=== PATIENT | female | born 1985 ===

== ENCOUNTER 2021-06-21 10:23 | Outpatient (CLI) | payer OTHER | END 2021-06-21 11:45 | disposition home or self-care (01) | LOC: PRENATAL 10:23 | PROVIDERS: ATTEND Obstetrics & Gynecology Maternal & Fetal Medicine | DX: O34.11 Maternal care for benign tumor of corpus uteri, first trimester (principal); O36.80X1 Pregnancy with inconclusive fetal viability, fetus 1; Z36.89 Encounter for other specified antenatal screening; Z3A.14 14 weeks gestation of pregnancy ==

== ENCOUNTER 2021-08-03 09:20 | Outpatient (CLI) | payer OTHER | END 2021-08-03 10:40 | disposition home or self-care (01) | LOC: PRENATAL 09:20 | PROVIDERS: ATTEND Obstetrics & Gynecology Maternal & Fetal Medicine | DX: O35.0XX1 Maternal care for (suspected) central nervous system malformation in fetus, fetus 1 (principal); O35.3XX1 Maternal care for (suspected) damage to fetus from viral disease in mother, fetus 1; O98.512 Other viral diseases complicating pregnancy, second trimester; O34.12 Maternal care for benign tumor of corpus uteri, second trimester; Z36.89 Encounter for other specified antenatal screening; Z3A.20 20 weeks gestation of pregnancy ==

== ENCOUNTER 2021-08-25 11:38 | Outpatient (CLI) | payer OTHER | END 2021-08-25 15:06 | disposition home or self-care (01) | LOC: OBS/DEL 11:38 | PROVIDERS: ATTEND Obstetrics & Gynecology | DX: O26.842 Uterine size-date discrepancy, second trimester (principal); O26.852 Spotting complicating pregnancy, second trimester; Z3A.23 23 weeks gestation of pregnancy ==

== ENCOUNTER 2021-11-03 14:29 | Outpatient (CLI) | payer OTHER | END 2021-11-03 16:11 | disposition home or self-care (01) | LOC: PRENATAL 14:29 | PROVIDERS: ATTEND Obstetrics & Gynecology Maternal & Fetal Medicine | DX: O26.843 Uterine size-date discrepancy, third trimester (principal); O36.8131 Decreased fetal movements, third trimester, fetus 1; O35.0XX1 Maternal care for (suspected) central nervous system malformation in fetus, fetus 1; O24.410 Gestational diabetes mellitus in pregnancy, diet controlled; Z36.89 Encounter for other specified antenatal screening; Z3A.33 33 weeks gestation of pregnancy ==

== ENCOUNTER 2021-11-16 13:36 | Outpatient (CLI) | payer OTHER | END 2021-11-17 08:29 | disposition home or self-care (01) | LOC: OBS/DEL 13:36 | PROVIDERS: ATTEND Obstetrics & Gynecology | DX: O26.893 Other specified pregnancy related conditions, third trimester (principal); R10.2 Pelvic and perineal pain; Z3A.35 35 weeks gestation of pregnancy; Z11.52 Encounter for screening for COVID-19 ==

== ENCOUNTER 2021-11-29 14:00 | Outpatient (CLI) | payer OTHER | END 2021-11-29 15:05 | disposition home or self-care (01) | LOC: PRENATAL 14:00 | PROVIDERS: ATTEND Obstetrics & Gynecology Maternal & Fetal Medicine | DX: O26.849 Uterine size-date discrepancy, unspecified trimester (principal); O24.419 Gestational diabetes mellitus in pregnancy, unspecified control ==

== ENCOUNTER → 2023-11-26 14:47 | Outpatient (CLI) | payer OTHER | END | disposition home or self-care (01) | LOC: PRENATAL 14:47 | PROVIDERS: ATTEND Obstetrics & Gynecology Maternal & Fetal Medicine | DX: O36.80X0 Pregnancy with inconclusive fetal viability, not applicable or unspecified (principal); Z36.82 Encounter for antenatal screening for nuchal translucency; O09.529 Supervision of elderly multigravida, unspecified trimester; O34.219 Maternal care for unspecified type scar from previous cesarean delivery; Z3A.11 11 weeks gestation of pregnancy ==

== ENCOUNTER → 2024-01-27 11:10 | Outpatient (CLI) | payer OTHER | END | disposition home or self-care (01) | LOC: PRENATAL 11:10 | PROVIDERS: ATTEND Obstetrics & Gynecology Maternal & Fetal Medicine | DX: O35.9XX0 Maternal care for (suspected) fetal abnormality and damage, unspecified, not applicable or unspecified (principal); O09.529 Supervision of elderly multigravida, unspecified trimester; O35.3XX0 Maternal care for (suspected) damage to fetus from viral disease in mother, not applicable or unspecified; O34.219 Maternal care for unspecified type scar from previous cesarean delivery; O44.00 Complete placenta previa NOS or without hemorrhage, unspecified trimester; Z3A.20 20 weeks gestation of pregnancy ==

== ENCOUNTER 2024-04-21 11:25 | Outpatient (CLI) | payer OTHER | END 2024-04-21 11:26 | disposition home or self-care (01) | LOC: PRENATAL 11:25 | PROVIDERS: ATTEND Obstetrics & Gynecology Maternal & Fetal Medicine | DX: O36.5930 Maternal care for other known or suspected poor fetal growth, third trimester, not applicable or unspecified (principal); O36.8130 Decreased fetal movements, third trimester, not applicable or unspecified; O09.523 Supervision of elderly multigravida, third trimester; O34.219 Maternal care for unspecified type scar from previous cesarean delivery; Z3A.32 32 weeks gestation of pregnancy ==

== ENCOUNTER 2024-05-26 21:53 | Outpatient (CLI) | payer OTHER ==
[2024-05-26] MEDS ORDERED: RINGERS SOLUTION,LACTATED 1,000 ML IV SCH (22:30)
[2024-05-26 23:26] LABS: PH,URINE 6.5 (5.0-8.0); URINE APPEARANCE Cloudy; URINE BILIRRUBIN Negative (NEGATIVE); URINE BLOOD Negative; URINE COLOR Yellow; URINE GLUCOSE Negative (NEGATIVE); URINE LEUKOCYTE Trace; URINE NITRATE Negative; URINE PROTEIN Negative (NEGATIVE)
[2024-05-26 23:46] LABS: URINE BACTERIA 4931.4 uL (0.0-1933); URINE WBC 53.6 uL (0.0-23.2)
[2024-05-26] MEDS ORDERED: OXYTOCIN 20 UNITS/1000ML RL PIGGYBAG IV ONE (23:58)
[2024-05-27 00:47] LABS: INR 0.98; PARTIAL THROMBOPLASTIN TIME 28.5 SECONDS (22.0-34.0); PROTHROMBIN TIME 10.3 SECONDS (9.0-11.5)
[2024-05-27 01:01] LABS: URINE EPITHELIAL CELLS > 201.7 uL (0.0-38.8); URINE MUCUS MODERATE; URINE RBC 0.3 uL (0.0-20.8)
[2024-05-27 01:05] LABS: HEMATOCRIT 37.5 % (36.0-45.00); HEMOGLOBIN 13.7 g/dL (12.0-15.00); MEAN CELL VOLUME 95.7 fL (80.00-100.00); MEAN CORPUSCULAR HEMOGLOBIN 34.9 pg (27.00-32.0); MEAN CORPUSCULAR HGB CONC 36.5 g/dl (32.0-36.0); PLATELET COUNT 175 K/uL (150-450); RED BLOOD COUNT 3.92 M/uL (4.00-6.00); RED CELL DISTRIBUTION WIDTH 13.1 % (11.5-14.5)
== END 2024-05-27 10:25 | disposition home or self-care (01) ==
LOC: OBS/DEL 21:53
PROVIDERS: ATTEND Obstetrics & Gynecology
DX: O23.43 Unspecified infection of urinary tract in pregnancy, third trimester (principal); N39.0 Urinary tract infection, site not specified; Z3A.37 37 weeks gestation of pregnancy

== ENCOUNTER 2024-06-04 09:15 | Inpatient (IN) | payer OTHER ==
[~2024-06-04] VITALS: Ht 157.5 cm; Wt 4.1 kg
[2024-06-04 10:45] LABS: HEMATOCRIT 39.4 % (36.0-45.00); HEMOGLOBIN 14.1 g/dL (12.0-15.00); MEAN CELL VOLUME 95.2 fL (80.00-100.00); MEAN CORPUSCULAR HEMOGLOBIN 34.1 pg (27.00-32.0); MEAN CORPUSCULAR HGB CONC 35.8 g/dl (32.0-36.0); PLATELET COUNT 179 K/uL (150-450); RED BLOOD COUNT 4.14 M/uL (4.00-6.00)
[2024-06-04 10:54] LABS: URINE APPEARANCE Clear; URINE BILIRRUBIN Negative (NEGATIVE); URINE BLOOD Negative; URINE COLOR Dark Yellow; URINE GLUCOSE Negative (NEGATIVE); URINE LEUKOCYTE Trace; URINE NITRATE Negative; URINE PROTEIN Trace (NEGATIVE)
[2024-06-04 10:55] LABS: URINE BACTERIA 1530.6 uL (0.0-1933); URINE EPITHELIAL CELLS 46.2 uL (0.0-38.8); URINE RBC 2.1 uL (0.0-20.8)
[2024-06-04 11:07] LABS: URINE CAST 0.15 uL (0.0-1.40); URINE KETONE 80 (NEGATIVE)
[2024-06-04 11:54] LABS: INR 0.96; PARTIAL THROMBOPLASTIN TIME 27.9 SECONDS (22.0-34.0); PROTHROMBIN TIME 10.1 SECONDS (9.0-11.5)
[2024-06-08] MEDS ORDERED: RINGERS SOLUTION,LACTATED 1,000 ML IV SCH (06:45)
[2024-06-08] MEDS ORDERED: PRENATAL TABLE1 EAC1 PO (07:33)
[2024-06-08 08:59] LABS: HEMATOCRIT 38.8 % (36.0-45.00); HEMOGLOBIN 13.9 g/dL (12.0-15.00); MEAN CELL VOLUME 96.5 fL (80.00-100.00); MEAN CORPUSCULAR HEMOGLOBIN 34.6 pg (27.00-32.0); MEAN CORPUSCULAR HGB CONC 35.8 g/dl (32.0-36.0); PLATELET COUNT 163 K/uL (150-450); RED BLOOD COUNT 4.02 M/uL (4.00-6.00)
[2024-06-08 09:14] LABS: INR 0.98; PARTIAL THROMBOPLASTIN TIME 27.8 SECONDS (22.0-34.0); PROTHROMBIN TIME 10.3 SECONDS (9.0-11.5)
[2024-06-08 09:57] LABS: ALBUMIN 2.8 gm/dL (3.4-5.0); BILIRUBIN TOTAL 0.48 mg/dL (0.3-1.2); CALCIUM 9.7 mg/dL (8.5-10.1); CREATININE SERUM 0.53 mg/dL (0.55-1.02); GFR 130.53; GLOBULINA 3.4 G/DL (2.4-3.5); POTASSIUM 3.99 mEq/L (3.5-5.1); TOTAL PROTEIN 6.2 gm/dL (6.4-8.2)
[2024-06-08] MEDS ORDERED: CEFAZOLIN SODIUM 1,000 MG VIAL IV SCH (11:15)
[2024-06-08] MEDS ORDERED: ERYTHROMYCIN BASE 1 GM TUBE OP ONE ×2 (12:25→15:00)
[2024-06-08] MEDS ORDERED: OXYTOCIN 10 UNITS/ML VIAL ONE (12:25)
[2024-06-08] MEDS ORDERED: PROMETHAZINE HCL 50 MG/ML AMPUL IM PRN (15:15)
[2024-06-08] MEDS ORDERED: MEPERIDINE HCL/PF 50 MG/ML VIAL IM PRN (15:15)
[2024-06-08] MEDS ORDERED: OXYTOCIN 10 UNITS/ML VIAL IV ONE (15:15)
[2024-06-08 16:58] LABS: HEMATOCRIT 41.7 % (36.0-45.00); HEMOGLOBIN 14.7 g/dL (12.0-15.00); MEAN CELL VOLUME 96.5 fL (80.00-100.00); MEAN CORPUSCULAR HGB CONC 35.2 g/dl (32.0-36.0); PLATELET COUNT 168 K/uL (150-450); RED BLOOD COUNT 4.32 M/uL (4.00-6.00); RED CELL DISTRIBUTION WIDTH 13.2 % (11.5-14.5)
[2024-06-08] MEDS ORDERED: PROMETHAZINE HCL 50 MG/ML AMPUL IM ONE (17:52)
[2024-06-09] MEDS ORDERED: OxyCODONE HCL/APAP UD (PERCOCET) PO PRN (08:00)
[2024-06-09] MEDS ORDERED: DOCUSATE SODIUM 100MG CAP PO SCH (08:00)
[2024-06-09] MEDS ORDERED: PNV,CALCIUM 72/IRON/FOLIC ACID 1 TAB TABLET PO SCH (08:00)
[2024-06-09] MEDS ORDERED: SIMETHICONE 125 MG CAPSULE PO SCH (08:00)
[2024-06-09 21:18] LABS: HEMATOCRIT 35.7 % (36.0-45.00); HEMOGLOBIN 12.7 g/dL (12.0-15.00); MEAN CORPUSCULAR HGB CONC 35.4 g/dl (32.0-36.0); PLATELET COUNT 188 K/uL (150-450); RED BLOOD COUNT 3.72 M/uL (4.00-6.00); RED CELL DISTRIBUTION WIDTH 13.2 % (11.5-14.5)
[2024-06-10] MEDS ORDERED: HYDROCORTISONE 2.5% 30 GM TUBE RECTAL SCH (17:00)
== END 2024-06-11 12:30 | disposition home or self-care (01) | DRG 785 ==
LOC: LDR 06-08 06:32 → O/R 06-08 14:23 → OB/GYN 06-08 15:48
PROVIDERS: ADMIT Obstetrics & Gynecology; ATTEND Obstetrics & Gynecology
PROC: 0UB70ZZ Excision of Bilateral Fallopian Tubes, Open Approach (ICD-10-PCS; 2024-06-08)
PROC: 4A1HXCZ Monitoring of Products of Conception, Cardiac Rate, External Approach (ICD-10-PCS; 2024-06-08)
PROC: 10D00Z1 Extraction of Products of Conception, Low, Open Approach (ICD-10-PCS; principal; 2024-06-08 07:00)
DX: O36.63X0 Maternal care for excessive fetal growth, third trimester, not applicable or unspecified (principal); O34.211 Maternal care for low transverse scar from previous cesarean delivery; Z30.2 Encounter for sterilization; Z37.0 Single live birth; Z3A.39 39 weeks gestation of pregnancy; Z20.822 Contact with and (suspected) exposure to COVID-19

== ENCOUNTER → 2025-07-02 | Day surgery (SDC) | payer OTHER ==
[2025-06-23 12:34] LABS: URINE APPEARANCE Clear; URINE BILIRRUBIN Negative (NEGATIVE); URINE BLOOD Negative; URINE COLOR Yellow; URINE GLUCOSE Negative (NEGATIVE); URINE KETONE Trace (NEGATIVE); URINE LEUKOCYTE Negative; URINE NITRATE Negative; URINE PROTEIN Negative (NEGATIVE); URINE UROBILINOGEN 0.2 E.U./dl
[2025-06-23 12:36] LABS: BASO % 0.6 % (0.1-1.2); EOS # 0.06 (0.04-0.54); EOS % 0.9 % (0.7-7.0); LYMPH # 1.89 (1.18-3.74); LYMPH % 29.1 % (19.3-53.1); MEAN PLATELET VOLUME 10.00 fl (9.4-12.4); MONO # 0.31 (0.24-0.82); MONO % 4.8 % (4.7-12.5); NEUT # 4.17 (1.56-6.13); NEUT % 64.3 % (34.0-71.1); RED CELL DISTRIBUTION WIDTH 11.1 % (11.6-14.4)
[2025-06-23 12:38] VITALS: BP 116/76
[2025-06-23 12:38] LABS: URINE BACTERIA 51.5 uL (0.0-1933); URINE EPITHELIAL CELLS 25.8 uL (0.0-38.8); URINE WBC 2.9 uL (0.0-23.2)
[2025-06-23 12:51] LABS: INR 1.05
[2025-06-23 12:57] LABS: URINE CAST 0.00 uL (0.0-1.40); URINE RBC 1.6 uL (0.0-20.8)
[2025-06-23 13:22] LABS: ALT/SGPT 17.0 U/L (12-78); AST/SGOT 9.0 U/L (15-37); BILIRUBIN TOTAL 0.73 mg/dL (0.3-1.2); BUN CREA RATIO 26.0 (7.0-25.0); CREATININE SERUM 0.65 mg/dL (0.55-1.02); GFR 102.56; GLOBULINA 3.5 G/DL (2.4-3.5); GLUCOSE FASTING 86.0 mg/dL (65-100); OSMOLALITY SERUM 280.0 MOSM/KG (275-295)
[~2025-07-02] VITALS: Ht 152.4 cm; Wt 65.8 kg
[~2025-07-02] MED LIST: BUPIVACAINE HCL/Mpf 0.5% 10ML VIAL ONE; CEFAZOLIN SODIUM 1,000 MG VIAL IV ONE; CEFAZOLIN SODIUM 1,000 MG VIAL ONE; LIDOCAINE HCL 1%/EPINEPHRINE 20ML VIAL IJ ONE; MORPHINE SULFATE 4 MG/ML VIAL IV ONE; PRENATAL TABLE1 EAC1 PO; SUGAMMADEX SODIUM 200 MG/2 ML VIAL IV ONE
== END | disposition home or self-care (01) ==
LOC: ADM 06-23 09:30 → CIR.AMB 06:00 → ADM 09:30 → CIR.AMB 09:30
PROVIDERS: ATTEND Surgery
DX: K80.10 Calculus of gallbladder with chronic cholecystitis without obstruction (principal)